=== PATIENT | male | born 1970 | race Caucasian/White ===

== ENCOUNTER 2018-08-31 05:36 | Emergency (ER) | payer SELFPAY ==
[2018-08-31] MEDS ORDERED: Ketorolac INJ* 60 MG/2 ML VIAL IM ONE (06:11)
[2018-08-31] MEDS ORDERED: Cyclobenzaprine TAB* 10 MG PO ONE (06:12)
[2018-08-31] MEDS ORDERED: oxyCODONE/Acetamin 5/325 MG* TAB PO ONE (06:13)
--- NOTE | 2018-08-31 06:15 | ED ---
Neck Pain - HPI Summary HPI Summary: Patient is a 47 y/o M presenting to ED with complaints of left sided neck pain with radiation to his left shoulder for the past two days. No numbness, no tingling reported. He notes that he saw his chiropractor and pain was alleviated at first but has worsened now. Patient has been taking ibuprofen with no relief in Sx. On triage, pain is rated 10/10, movement is noted to aggravate Sx, nothing is reported to alleviate Sx. Patient notes he took 2600 mg ibuprofen since midnight. Home medications and allergies are reviewed. - History of Current Complaint Chief Complaint: EDNeckComplaint Stated Complaint: NECK PAIN Time Seen by Provider: 08/31/18 06:04 Hx Obtained From: Patient Onset/Duration Of Injury/Symptoms: Days - TWO DAYS Mechanism Of Injury: No Known Trauma Timing: Constant, Lasting Days - two days Onset/Duration: Started days ago - two days, Still Present Severity Currently: Severe Pain Intensity: 10 Pain Scale Used: 0-10 Numeric - 10/10 Location: Discrete At: - left neck, Radiates To: - LEFT SHOULDER Aggravating Factors: Movement Alleviating Factors: Nothing Associated Signs & Symptoms: Positive: Negative - Allergies/Home Medications Allergies/Adverse Reactions: Allergies Allergy/AdvReac Type Severity Reaction Status Date / Time No Known Allergies Allergy Verified 08/31/18 05:38 PMH/Surg Hx/FS Hx/Imm Hx Sensory History: Denies: Hx Legally Blind, Hx Deafness Opthamlomology History: Denies: Hx Legally Blind EENT History: Denies: Hx Deafness Infectious Disease History: No Infectious Disease History: Denies: Traveled Outside the [place] in Last 30 Days - Family History Known Family History: Negative: Blood Disorder - Social History Alcohol Use: Occasionally Substance Use Type: Reports: Marijuana Hx Tobacco Use: Yes Review of Systems Positive: Other - POSITIVE - NECK PAIN WITH RADIATION TO LEFT SHOULDER Neurological: Other - NEGATIVE - TINGLING Negative: Numbness All Other Systems Reviewed And Are Negative: Yes Physical Exam - Summary Physical Exam Summary: VITAL SIGNS: Reviewed. GENERAL: Patient is a well-developed and nourished male who is lying comfortable in the stretcher. Patient is not in any acute respiratory distress. HEAD AND FACE: No signs of trauma. No ecchymosis, hematomas or skull depressions. No sinus tenderness. EYES: PERRLA, EOMI x 2, No injected conjunctiva, no nystagmus. EARS: Hearing grossly intact. Ear canals and tympanic membranes are within normal limits. MOUTH: Oropharynx within normal limits. NECK: Supple, trachea is midline, no adenopathy, no JVD, no carotid bruit. Tenderness over the left posterior neck, mild decrease range of motion from side to side, FROM with extension and flexion. CHEST: Symmetric, no tenderness at palpation LUNGS: Clear to auscultation bilaterally. No wheezing or crackles. CVS: Regular rate and rhythm, S1 and S2 present, no murmurs or gallops appreciated. ABDOMEN: Soft, non-tender. No signs of distention. No rebound no guarding, and no masses palpated. Bowel sounds are normal. EXTREMITIES: FROM in all major joints, no edema, no cyanosis or clubbing. NEURO: Alert and oriented x 3. No acute neurological deficits. Speech is normal and follows commands. SKIN: Dry and warm Triage Information Reviewed: Yes Vital Signs On Initial Exam: Initial Vitals Temp Pulse Resp BP Pulse Ox 97.4 F 84 16 167/113 100 08/31/18 05:38 08/31/18 05:38 08/31/18 05:38 08/31/18 05:38 08/31/18 05:38 Vital Signs Reviewed: Yes Diagnostics - Vital Signs Vital Signs Temp Pulse Resp BP Pulse Ox 08/31/18 05:38 97.4 F 84 16 167/113 100 - Laboratory Lab Statement: Any lab studies that have been ordered have been reviewed, and results considered in the medical decision making process. Neck Course/Dx - Course Course Of Treatment: Patient is a 47 y/o M presenting to ED with complaints of left sided neck pain with radiation to his left shoulder for the past two days. No numbness, no tingling reported. He notes that he saw his chiropractor and pain was alleviated at first but has worsened now. Patient has been taking ibuprofen with no relief in Sx. On physical exam, tenderness over the left posterior neck, mild decrease range of motion from side to side, FROM with extension and flexion. During ED course, patient received Percocet 5/325 tab PO , Toradol 60 mg IM, flexeril 10mg PO. Patient was discharged to home and advised to follow up with PCP, he is agreeable with this. - Diagnoses Provider Diagnoses: Neck muscle spasm Discharge - Sign-Out/Discharge Documenting (check all that apply): Patient Departure - discharge - Discharge Plan Condition: Stable Disposition: HOME Prescriptions: Cyclobenzaprine TAB* [Flexeril 10 MG TAB*] 10 mg PO TID PRN #20 tab PRN Reason: Spasms - Neck Ibuprofen TAB* [Motrin TAB* 800 MG] 800 mg PO Q6H #30 tab Patient Education Materials: Muscle Spasm (ED) Referrals: Tawanda Thomas MD [Primary Care Provider] - 2 Days Additional Instructions: RETURN TO THE EMERGENCY DEPARTMENT FOR CHANGING OR WORSENING SYMPTOMS. FOLLOW UP WITH PRIMARY CARE PHYSICIAN IN 1-2 DAYS. - Billing Disposition and Condition Condition: STABLE Disposition: Home - Attestation Statements Document Initiated by Karissa: Yes Documenting Scribe: LUCY MONSALVE Provider For Whom Karissa is Documenting (Include Credential): SUNNY VEGA MD Scribe Attestation: LUCY Greenberg , esperanzaibed for SUNNY VEGA MD on 09/04/18 at 0350. Scribe Documentation Reviewed: Yes Provider Attestation: The documentation as recorded by the LUCY stark accurately reflects the service I personally performed and the decisions made by , SUNNY VEGA MD Status of Scribe Document: Viewed
[2018-08-31 07:15] VITALS: BP 150/99
== END 2018-08-31 07:15 | disposition home or self-care (01) ==
LOC: ED 05:36
DX: M54.2 Cervicalgia (principal); M62.838 Other muscle spasm
CPT/HCPCS: 96372; 99282; A9270-GY; J1885

== ENCOUNTER 2018-11-08 06:38 | Emergency (ER) | payer BC ==
[2018-11-08 09:23] VITALS: BP 131/86
--- NOTE | 2018-11-08 09:54 | ED ---
Back Pain - HPI Summary HPI Summary: Patient is a 47-year-old male with no significant past medical history presenting to the ED with the right lower back pain radiating into his right posterior leg and foot. Denies any weakness. Denies any bladder or bowel dysfunction. Symptoms began approximately 1 week ago. Worse with standing, better with lying flat. He has not taken any medication [id number] for relief. He states he took 2 days off work this week and symptoms had improved. He stands a lot for work and this makes the symptoms worse. Denies any numbness or tingling. - History of Current Complaint Chief Complaint: EDBackInjuryPain Stated Complaint: BACK PAIN Time Seen by Provider: 11/08/18 08:05 Hx Obtained From: Patient Onset/Duration: Sudden Onset Onset/Duration: Started Hours Ago Timing: Constant Back Pain Location: Is Discrete @ - right lower back pain radiating to the R posterior leg without N/T Pain Intensity: 10 Pain Scale Used: 0-10 Numeric Alleviating Symptom(s): Rest Associated Signs And Symptoms: Negative: Swelling, Redness, Bruising, Flank Pain , Bladder Incontinence, Bowel Incontinence, Weight Loss, Pain with Weight Bearing - Risk Factors AAA Risk Factors: Negative TAD Risk Factors: Negative Cauda Equina Risk Factors: Negative Epidural Abscess Risk Factors: Negative - Allergies/Home Medications Allergies/Adverse Reactions: Allergies Allergy/AdvReac Type Severity Reaction Status Date / Time No Known Allergies Allergy Verified 11/08/18 06:43 PMH/Surg Hx/FS Hx/Imm Hx Previously Healthy: Yes Sensory History: Denies: Hx Legally Blind, Hx Deafness Opthamlomology History: Denies: Hx Legally Blind Infectious Disease History: No Infectious Disease History: Denies: Traveled Outside the [place] in Last 30 Days - Family History Known Family History: Negative: Blood Disorder - Social History Occupation: Unemployed Lives: With Family Alcohol Use: Daily Hx Substance Use: Yes Substance Use Type: Reports: Marijuana Hx Tobacco Use: Yes Smoking Status (MU): Never Smoked Tobacco Review of Systems Negative: Fever, Chills, Fatigue, Skin Diaphoresis Negative: Palpitations, Chest Pain Negative: Shortness Of Breath, Cough Genitourinary: Negative Positive: no symptoms reported, see HPI. Negative: burning, dysuria, flank pain , hematuria, incontinence, urgency Positive: Arthralgia, Myalgia - right lower back pain radiating to the R posterior leg without N/T Skin: Negative Neurological: Negative All Other Systems Reviewed And Are Negative: Yes Physical Exam Triage Information Reviewed: Yes Vital Signs On Initial Exam: Initial Vitals Temp Pulse Resp BP Pulse Ox 98.0 F 80 16 137/93 97 11/08/18 06:42 11/08/18 06:42 11/08/18 06:42 11/08/18 06:42 11/08/18 06:42 Vital Signs Reviewed: Yes Appearance: Positive: Well-Appearing, Well-Nourished Skin: Positive: Warm, Skin Color Reflects Adequate Perfusion Head/Face: Positive: Normal Head/Face Inspection Eyes: Positive: EOMI, MICK, Conjunctiva Clear Neck: Positive: Supple, No Lymphadenopathy Respiratory/Lung Sounds: Positive: Clear to Auscultation, Breath Sounds Present Cardiovascular: Positive: RRR, Pulses are Symmetrical in both Upper and Lower Extremities Musculoskeletal: Positive: Pain @ - right lower back pain radiating to the R posterior leg without N/T Neurological: Positive: Sensory/Motor Intact, Alert, Oriented to Person Place, Time, Speech Normal Psychiatric: Positive: Affect/Mood Appropriate Diagnostics - Vital Signs Vital Signs Temp Pulse Resp BP Pulse Ox 11/08/18 09:21 98.1 F 78 16 131/86 99 11/08/18 06:42 98.0 F 80 16 137/93 97 - Laboratory Lab Statement: Any lab studies that have been ordered have been reviewed, and results considered in the medical decision making process. Back Pain Course/Dx - Course Course Of Treatment: During the course of treatment, the patient's evaluated for right sided lower back pain radiating into the right lower leg. On physical examination, there is no posterior cervical, thoracic or lumbar spine tenderness. No bladder or bowel dysfunction per patient. Rectal exam not performed. Patient remains ambulatory. He states the pain is intermittent, worse with standing and sitting, better with lying flat. He is given prednisone , Flexeril, ibuprofen and tramadol for relief. Encouraged low back exercises and massage. - Diagnoses Differential Diagnosis/HQI/PQRI: Positive: Strain, Sprain Provider Diagnoses: Sciatic leg pain Discharge - Sign-Out/Discharge Documenting (check all that apply): Patient Departure Patient Received Moderate/Deep Sedation with Procedure: No - Discharge Plan Condition: Stable Disposition: HOME Prescriptions: Cyclobenzaprine TAB* [Flexeril TAB*] 10 mg PO BID PRN #15 tab PRN Reason: Spasms Ibuprofen 600 mg PO TID PRN #30 tablet MDD 3 PRN Reason: Pain predniSONE TAB* [Deltasone TAB*] 50 mg PO DAILY #5 tab MDD 1 traMADol TAB* [Ultram*] 50 mg PO Q8H PRN #12 tab MDD 3 PRN Reason: Pain Patient Education Materials: Sciatica (ED), Lumbar Radiculopathy (ED), Lower Back Exercises (ED) Referrals: Tawanda Thomas MD [Primary Care Provider] - Additional Instructions: As discussed, massage to the area Prednisone once daily 5 days, take this in the morning only Flexeril up to twice daily as needed for muscle spasms Tramadol to 3 times daily for pain Ibuprofen 3 times daily for inflammation Use moist heat to the area and then provide gentle stretches immediately following - Billing Disposition and Condition Condition: STABLE Disposition: Home
== END 2018-11-08 09:21 | disposition home or self-care (01) ==
LOC: ED 06:38
DX: M54.31 Sciatica, right side (principal)
CPT/HCPCS: 99282

== ENCOUNTER 2019-07-21 06:52 | Emergency (ER) | payer BC ==
--- NOTE | 2019-07-21 08:20 | ED ---
Back Pain - HPI Summary HPI Summary: Pt. is a 48 y.o male who presents to the ER for diffuse back pain and abdominal pain. Pt. states pain initially started in his back but now radiates into his abdomen. Pt. notes abd. bloating and increased belching. Pt. notes pain occasionally radiates to chest. Pt. denies past medical hx. Pt. saw his PCP yesterday and was rx flexeril without improvement. Pt. denies injury. He does not V/D two weeks ago that has resolved. Pt. otherwise denies radicular pain into legs, fever, hematuria. Sxs are moderate in severity. No current modifying factors. Pt. notes he drinks a glass of wine or beer a day but notes last night he had 3 glasses of wine and ate pizza. - History of Current Complaint Chief Complaint: EDBackInjuryPain Stated Complaint: BACK PAIN PER PT Time Seen by Provider: 07/21/19 07:43 Hx Obtained From: Patient Pain Intensity: 10 - Allergies/Home Medications Allergies/Adverse Reactions: Allergies Allergy/AdvReac Type Severity Reaction Status Date / Time No Known Allergies Allergy Verified 07/21/19 06:57 PMH/Surg Hx/FS Hx/Imm Hx Previously Healthy: Yes Sensory History: Denies: Hx Legally Blind, Hx Deafness Opthamlomology History: Denies: Hx Legally Blind Infectious Disease History: No Infectious Disease History: Denies: Traveled Outside the [place] in Last 30 Days - Family History Known Family History: Positive: Non-Contributory Negative: Blood Disorder - Social History Occupation: Employed Full-time Lives: Alone Alcohol Use: Daily Hx Substance Use: Yes Substance Use Type: Reports: Marijuana Hx Tobacco Use: Yes Smoking Status (MU): Never Smoked Tobacco Review of Systems Constitutional: Negative Negative: Fever Positive: Chest Pain Positive: Shortness Of Breath Positive: Abdominal Pain. Negative: Vomiting, Diarrhea, Nausea Genitourinary: Negative Positive: Other - low back pain Neurological: Negative Negative: Weakness, Paresthesia, Numbness All Other Systems Reviewed And Are Negative: Yes Physical Exam Triage Information Reviewed: Yes Vital Signs On Initial Exam: Initial Vitals Temp Pulse Resp BP Pulse Ox 96.6 F 80 18 153/107 99 07/21/19 06:54 07/21/19 06:54 07/21/19 06:54 07/21/19 06:54 07/21/19 06:54 Vital Signs Reviewed: Yes Appearance: Positive: Well-Appearing - Pt. lying in bed in NAD. Pleasant. Skin: Positive: Warm, Dry Head/Face: Positive: Normal Head/Face Inspection Eyes: Positive: Normal, EOMI Neck: Positive: Supple Respiratory/Lung Sounds: Positive: Clear to Auscultation, Breath Sounds Present Cardiovascular: Positive: Normal, RRR Abdomen Description: Positive: Other: - Obese. Slightly distended. Abd is soft with epigastric tenderness. no rebound or guarding. Musculoskeletal: Positive: Normal, Strength/ROM Intact, Other - No reproducible back tenderness. Neurological: Positive: Normal, CN Intact II-III Procedures - Sedation Patient Received Moderate/Deep Sedation with Procedure: No Diagnostics - Vital Signs Vital Signs Temp Pulse Resp BP Pulse Ox 07/21/19 06:54 96.6 F 80 18 153/107 99 - Laboratory Result Diagrams: 07/21/19 08:28 07/21/19 08:28 Lab Statement: Any lab studies that have been ordered have been reviewed, and results considered in the medical decision making process. Back Pain Course/Dx - Course Course Of Treatment: Pt. presenting with vague complaints of low back pain and abdominal pain. He is afebrile. BP elevated. ECG done at 0908 shows a sinus rhythm of 65bpm, normal axis, no ST elevation or depression. Pt. given a dose of morphine for pain. Will obtain labs and ct scan for further evalation. CBC shows mild anemia. CMP shows mild elevation in liver enzymes and alk phos. CT abd/pelvis is negative for acute findings per radiology. On re-exam pt. states his pain did improve but now notes more epigastric pain. Suspect pain is secondary to GERD vs hepatitis, vs PUD. Pt. notes he drinks a bit of ETOH on a daily basis as well as drinks a lot of coffee. Pt. given a GI cocktail with moderate relief. Will place on Protonix. Instructed on foods and drink to avoid. To f.u with pcp for repeat CMP and further evaluation. Will return to er if sxs change or worsen. pt understands and agrees with plan. - Diagnoses Differential Diagnosis/HQI/PQRI: Positive: Herniated Disc, Renal Colic, Strain, Sprain Provider Diagnoses: GERD (gastroesophageal reflux disease), Back pain, Abdominal pain Discharge ED - Sign-Out/Discharge Documenting (check all that apply): Patient Departure - Discharge Plan Condition: Improved Disposition: HOME Prescriptions: Pantoprazole TAB * [Protonix TAB*] 40 mg PO DAILY #30 tab Patient Education Materials: Diet for Stomach Ulcers and Gastritis (ED), Gastroesophageal Reflux Disease (ED) Referrals: Tawanda Thomas MD [Primary Care Provider] - Additional Instructions: Schedule a follow up appointment with your PCP for repeat labs to check your liver enzymes Take protonix as directed Can also use over the counter Tums, maalox, pepto bismol Avoid alcohol, tylenol, caffeine, spicy/acid foods Return to ER if symptoms change or worsen - Billing Disposition and Condition Condition: IMPROVED Disposition: Home - Attestation Statements Provider Attestation: I was available for consult. This patient was seen by the L[facility]. The patient was not presented to, seen by, or examined by me. -Shakeel
[2019-07-21] MEDS ORDERED: Ondansetron INJ* 2 MG/ML VIAL IV ONE (08:22)
[2019-07-21] MEDS ORDERED: Morphine 4 MG/ML VIAL (1 ml) 4 MG/ML VIAL IV ONE (08:22)
[2019-07-21 08:37] LABS: ABS Basophils 0.1 10^3/ul (0-0.2); ABS Eosinophils 0.2 10^3/ul (0-0.6); ABS Lymphocytes 1.4 10^3/ul (1.0-4.8); ABS Monocytes 0.4 10^3/ul (0-0.8); ABS Neutrophils 3.5 10^3/ul (1.5-7.7); Eosinophil % 3.5 %; Hematocrit 38 % (42-52); Hemoglobin 12.7 g/dL (14.0-18.0); Lymphocyte % 24.6 %; Mean Corpuscular HGB Conc 34 g/dL (31-36); Mean Corpuscular Hemoglobin 29 pg (27-31); Mean Corpuscular Volume 86 fL (80-94); Mean Platelet Volume 7.6 fL (7.4-10.4); Nucleated Red Blood Cells % 0.1; Platelet Count 320 10^3/uL (150-450); Red Blood Count 4.41 10^6 /uL (4.18-5.48); Red Cell Distribution Width 14 % (10-15); White Blood Count 5.6 10^3/uL (3.5-10.8)
[2019-07-21 08:54] LABS: Albumin 4.1 g/dL (3.2-5.2); Albumin/Globulin Ratio 1.3 (1-3); BUN/Creatinine Ratio 20.8 (8-20); C Reactive Protein 10.93 mg/L (<8.01); Calcium 9.1 mg/dL (8.6-10.3); EGFR African American 130.5 (>60); EGFR Non-African American 107.8 (>60); Globulin 3.2 g/dL (2-4); Potassium 3.6 mmol/L (3.5-5.0); Total Bilirubin 0.4 mg/dL (0.2-1.0); Total Protein 7.3 g/dL (6.4-8.9); Troponin I 0.01 ng/mL (<0.04)
[2019-07-21] MEDS ORDERED: Iohexol 300* (CONTRAST) 10 ML SDV IV ONE (09:20)
[2019-07-21] MEDS ORDERED: Lidocaine 2% VISCOUS* 15 ML UDC PO ONE (10:07)
[2019-07-21] MEDS ORDERED: Al Hydrox/Mg Hydrox/Simet LIQ* 30 ML UDC PO ONE (10:07)
[2019-07-21 11:31] VITALS: BP 138/104
[2019-07-21 12:44] LABS: HIV 4th Generation Nonreactive (Nonreactive)
== END 2019-07-21 11:15 | disposition home or self-care (01) ==
LOC: ED 06:52
DX: M54.9 Dorsalgia, unspecified (principal); K21.9 Gastro-esophageal reflux disease without esophagitis
CPT/HCPCS: 36415; 74177; 80053; 83690; 84484; 85025; 86140; 87389; 93005; 96374; 96375; 99284; A9270-GY; J2270; J2405; Q9967